=== PATIENT | male | born 1955 | race Caucasian/White ===

== ENCOUNTER → 2018-01-28 | Day surgery (SDC) | payer BC ==
[~2018-01-28] MED LIST: DICYCLOMINE HCL20 MG PO; FENTANYL CITRATE/PF 100MCG/2 ML INJ ONE; LISINOPRIL10 MG PO; LORAZEPAM1 MG PO; MELOXICAM7.5 MG PO; OMEPRAZOLE40 MG PO; PROPOFOL IV EMULSION 10 MG/ML 50 ML VIAL ONE; SUCRALFATE1 GM PO
[2018-01-28 14:30] VITALS: BP 102/74
== END | disposition home or self-care (01) ==
LOC: OR 12:19 → EDBD 15:30
PROVIDERS: ATTEND Internal Medicine
DX: K21.9 Gastro-esophageal reflux disease without esophagitis (principal); D12.0 Benign neoplasm of cecum; D12.5 Benign neoplasm of sigmoid colon; K29.50 Unspecified chronic gastritis without bleeding; K29.80 Duodenitis without bleeding; K64.3 Fourth degree hemorrhoids; I10 Essential (primary) hypertension; M19.90 Unspecified osteoarthritis, unspecified site; J44.9 Chronic obstructive pulmonary disease, unspecified; F41.9 Anxiety disorder, unspecified; F17.210 Nicotine dependence, cigarettes, uncomplicated; F10.10 Alcohol abuse, uncomplicated; Z01.810 Encounter for preprocedural cardiovascular examination
CPT/HCPCS: 43239; 45385; 93005

== ENCOUNTER → 2020-12-28 | Day surgery (SDC) | payer BC ==
[~2020-12-28] MED LIST changes: +KETAMINE HCL INJ 50 MG/ML 10 ML VIAL ONE; +MIDAZOLAM HCL 2 MG/2 ML VIAL ONE; +ONDANSETRON HCL INJ 2MG/ML 2ML 2 MG/ML VIAL ONE; -PROPOFOL IV EMULSION 10 MG/ML 50 ML VIAL ONE
[2020-12-28 13:50] VITALS: BP 140/81
== END | disposition home or self-care (01) ==
LOC: OR 12:59
PROVIDERS: ATTEND Internal Medicine Gastroenterology
DX: K20.90 Esophagitis, unspecified without bleeding (principal); K29.80 Duodenitis without bleeding; B96.81 Helicobacter pylori [H. pylori] as the cause of diseases classified elsewhere; D12.4 Benign neoplasm of descending colon; K64.8 Other hemorrhoids; K26.9 Duodenal ulcer, unspecified as acute or chronic, without hemorrhage or perforation; K29.70 Gastritis, unspecified, without bleeding; Z86.010 Personal history of colon polyps; I10 Essential (primary) hypertension; K59.09 Other constipation; Z72.0 Tobacco use
CPT/HCPCS: 43239; 45380; C9113; J2250; J2405; J3010